=== PATIENT | male | born 2000 | race Hispanic/Latino ===

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

== ENCOUNTER 2022-06-19 09:19 | Emergency (ER) | payer OTHER ==
[~2022-06-19] VITALS: Ht 167.6 cm; Wt 77.2 kg
[2022-06-19] MEDS ORDERED: OFLOXACIN0.3 % OD (09:50)
[2022-06-19 10:08] VITALS: BP 122/43
== END 2022-06-19 10:18 | disposition home or self-care (01) ==
LOC: ED 09:19
DX: H10.9 Unspecified conjunctivitis (principal)

== ENCOUNTER 2022-06-23 13:27 | Emergency (ER) | payer OTHER ==
[~2022-06-23] VITALS: Ht 167.6 cm; Wt 75.0 kg
[~2022-06-23 13:27] MED LIST changes: +OFLOXACIN0.3 % OD
[2022-06-23] MEDS ORDERED: ERYTHROMYCIN O3.5 GM OU (15:06)
[2022-06-23 15:12] VITALS: BP 125/71
== END 2022-06-23 15:16 | disposition home or self-care (01) ==
LOC: ED 13:27
DX: H10.9 Unspecified conjunctivitis (principal); R05.9 Cough, unspecified; R50.9 Fever, unspecified; R52 Pain, unspecified; R09.81 Nasal congestion; R19.7 Diarrhea, unspecified; Z20.822 Contact with and (suspected) exposure to COVID-19